=== PATIENT | male | born 1995 | race Caucasian/White ===

== ENCOUNTER 2019-01-06 07:36 | Emergency (ER) | payer BC, OTHER ==
[2019-01-06 07:42] VITALS: BP 138/89; PULSE 98; RESP 16; TEMP 98
--- NOTE | 2019-01-06 08:16 | ED ---
Overdose HPI - General Chief Complaint: Overdose Stated Complaint: Overdose Time Seen by Provider: 01/06/19 07:48 Source: EMS, RN notes reviewed, old records reviewed Mode of arrival: EMS Limitations: no limitations - History of Present Illness Initial Comments: Patient is 23-year-old male who presents emergency department today for evaluation for her taking LSD aproximally 5 hours ago and for Feeling abnormal. Patient states he has taken LSD in the past. He denies any other drug use at this time. Patient states that he is concerned he may have groin abscesses, abdominal abscess, adn internal bleeding. Patient also states she is concerned for constipation. Patient is erratic. - Related Data Home Medications Medication Instructions Recorded Confirmed Dextroamphetamine/Amphetamine 20 mg PO TID 01/06/19 01/06/19 [Adderall] Docusate [Colace] 100 mg PO BID PRN 01/06/19 01/06/19 Allergies Allergy/AdvReac Type Severity Reaction Status Date / Time No Known Allergies Allergy Verified 01/06/19 08:00 Review of Systems ROS Statement: Those systems with pertinent positive or pertinent negative responses have been documented in the HPI. ROS Other: All systems not noted in ROS Statement are negative. Past Medical History Past Medical History: No Reported History History of Any Multi-Drug Resistant Organisms: None Reported Past Surgical History: No Surgical Hx Reported Past Psychological History: No Psychological Hx Reported Smoking Status: Current every day smoker Past Alcohol Use History: None Reported Past Drug Use History: Marijuana General Exam - General Exam Comments Initial Comments: Erratic 23 year old male, anxiious. Appears under influence of drugs. Limitations: no limitations General appearance: alert, in no apparent distress Head exam: Present: atraumatic, normocephalic, normal inspection Eye exam: Present: normal appearance, PERRL, EOMI. Absent: scleral icterus, conjunctival injection, periorbital swelling ENT exam: Present: normal exam, mucous membranes moist Neck exam: Present: normal inspection. Absent: tenderness, meningismus, lymphadenopathy Respiratory exam: Present: normal lung sounds bilaterally. Absent: respiratory distress, wheezes, rales, rhonchi, stridor Cardiovascular Exam: Present: regular rate, normal rhythm, normal heart sounds. Absent: systolic murmur, diastolic murmur, rubs, gallop, clicks GI/Abdominal exam: Present: soft, normal bowel sounds. Absent: distended, tenderness, guarding, rebound, rigid Extremities exam: Present: normal inspection, full ROM, normal capillary refill. Absent: tenderness, pedal edema, joint swelling, calf tenderness Back exam: Present: normal inspection Neurological exam: Present: altered (Confused, pressued erratic converstations, and seems under influence. ) Course Vital Signs 01/06/19 07:39 Temperature 98.0 F Pulse Rate 98 Respiratory 16 Rate Blood Pressure 138/89 O2 Sat by Pulse 98 Oximetry Medical Decision Making - Medical Decision Making 23 year old male presents with EMS, found on street after taking LSD. Multiple strange complaints with concern for constipation, abdominal abscess, and bleeding from injection sites of drugs. UDS is positive for methamphetamine. Patient at this time has normal vitals, and is under influence and is erratic. Patient is held in ED, is able to have ride and someone to take him home. Patient advised symptoms and paranoia and erratic behaviour are from drugs. Disucssed appropriate folow up and counseling services. - Lab Data Lab Results 01/06/19 Range/Units 08:42 Urine Opiates Screen Not Detected (NotDetected) Ur Oxycodone Screen Not Detected (NotDetected) Urine Methadone Screen Not Detected (NotDetected) Ur Propoxyphene Screen Not Detected (NotDetected) Ur Barbiturates Screen Not Detected (NotDetected) U Tricyclic Antidepress Not Detected (NotDetected) Ur Phencyclidine Scrn Not Detected (NotDetected) Ur Amphetamines Screen Detected H (NotDetected) U Methamphetamines Scrn Detected H (NotDetected) U Benzodiazepines Scrn Not Detected (NotDetected) Urine Cocaine Screen Not Detected (NotDetected) U Marijuana (THC) Screen Not Detected (NotDetected) - Radiology Data Radiology results: report reviewed KUB is normal. Disposition Clinical Impression: Methamphetamine abuse Disposition: HOME SELF-CARE Condition: Good Instructions (If sedation given, give patient instructions): Methamphetamine Abuse (ED) Additional Instructions: Stop abusing drugs. Patient should follow-up with primary care physicians, return to the emergency department if any alarming signs or symptoms occur. Jolon: [phone] [place] [address] Appointment is Necessary Call @6AM Tuesday, Tuesday, Tuesday & 8am-11am Only take patients with no insurance or Medicaid. ---Do not accept patient with Blue Cross, Medicare, or Commerical Insurance Is patient prescribed a controlled substance at d/c from ED?: No Referrals: None,Stated [Primary Care Provider] - 1-2 days Time of Disposition: 11:10
--- NOTE | 2019-01-06 08:28 | XR ---
EXAMINATION TYPE: XR KUB DATE OF EXAM: 01/06/2019 COMPARISON: None INDICATION: Overdose, not feeling well TECHNIQUE: Single view abdomen FINDINGS: There is a normal bowel gas pattern. Psoas margins are normal. No organomegaly is present. IMPRESSION: 1. Unremarkable Abdomen
[2019-01-06 09:28] LABS: Cocaine Screen,Urine Not Detected (NotDetected); Opiate Screen,Urine Not Detected (NotDetected); Phencyclidine Screen,Urine Not Detected (NotDetected); Urn Cannabinoid Scrn Not Detected (NotDetected)
[2019-01-06 09:29] LABS: Amphetamine Screen,Urine Detected (NotDetected); Barbiturate Screen,Urine Not Detected (NotDetected); Benzodiazepines Screen,Urine Not Detected (NotDetected); Methadone Screen, Urine Not Detected (NotDetected); Oxycodone Screen, Urine Not Detected (NotDetected); Tricyclic Antidepressant,Urine Not Detected (NotDetected)
[2019-01-06] MEDS ORDERED: LORazepam 1 MG TAB PO STA (10:04)
== END 2019-01-06 12:00 | disposition home or self-care (01) ==
LOC: EC 07:36
DX: F15.10 Other stimulant abuse, uncomplicated (principal); F17.200 Nicotine dependence, unspecified, uncomplicated; Z79.899 Other long term (current) drug therapy
CPT/HCPCS: 74018; 80306; 99284

== ENCOUNTER 2019-01-16 07:39 | Emergency (ER) | payer BC, OTHER ==
[2019-01-16 07:42] VITALS: TEMP 98
--- NOTE | 2019-01-16 08:00 | ED ---
Abdominal Pain HPI - General Chief Complaint: Abdominal Pain Stated Complaint: abd pain, constipation Time Seen by Provider: 01/16/19 07:43 Source: patient Mode of arrival: ambulatory Limitations: no limitations - History of Present Illness Initial Comments: 23-year-old male presenting today for chief complaint of loose mucousy stools. Patient states that he usually struggles with constipation. He states that he has to use stimulant laxatives in order to have vomitus. Patient states that he has been using these and his last bowel movement was 30 hours ago. Patient states that he noticed that it was mucousy he was concerned that this was a parasite, he states this caused him to become anxious about it. Patient states that sometimes after eating this left-sided abdominal pain denies any current abdominal pain. Patient denies any bloody or dark stools. Patient denies any fevers, vomiting. Patient denies any recent travel or drinking from streams. Remaining review of system negative. Upon arrival pateint appears well there is no signs of acute distress. Afebrile, appearing well. - Related Data Home Medications Medication Instructions Recorded Confirmed Dextroamphetamine/Amphetamine 20 mg PO TID 01/06/19 01/06/19 [Adderall] Docusate [Colace] 100 mg PO BID PRN 01/06/19 01/06/19 Allergies Allergy/AdvReac Type Severity Reaction Status Date / Time No Known Allergies Allergy Verified 01/16/19 07:42 Review of Systems ROS Statement: Those systems with pertinent positive or pertinent negative responses have been documented in the HPI. ROS Other: All systems not noted in ROS Statement are negative. Past Medical History Past Medical History: No Reported History Additional Past Medical History / Comment(s): chronic constipation History of Any Multi-Drug Resistant Organisms: None Reported Past Surgical History: Tonsillectomy Additional Past Surgical History / Comment(s): skin graft, wisdom teeth Past Psychological History: No Psychological Hx Reported Smoking Status: Current every day smoker Past Alcohol Use History: Occasional Past Drug Use History: Marijuana General Exam - General Exam Comments Initial Comments: General: The patient is awake and alert, in no distress, and does not appear acutely ill. Eye: +3 mm pupils are equal, round and reactive to light, extra-ocular movements are intact. No nystagmus. There is normal conjunctiva bilaterally. No signs of icterus. Ears, nose, mouth and throat: There are moist mucous membranes and no oral lesions. Cardiovascular: There is a regular rate and rhythm. No murmur, rub or gallop is appreciated. Respiratory: Lungs are clear to auscultation, respirations are non-labored, breath sounds are equal. No wheezes, stridor, rales, or rhonchi. Gastrointestinal: Soft, non-distended, non-tender abdomen without masses or organomegaly noted. There is no rebound or guarding present.Bowel sounds are unremarkable. Musculoskeletal: Normal ROM, no tenderness. Strength 5/5. Sensation intact. Radial pulses equal bilaterally 2+. Neurological: A&O x 3. CN II-XII intact grossly, There are no obvious motor or sensory deficits. Coordination appears grossly intact. Speech is normal. Skin: Skin is warm and dry and no rashes or lesions are noted. Psychiatric: Cooperative, appropriate mood & affect, normal judgment. Limitations: no limitations Course Vital Signs 01/16/19 01/16/19 07:40 08:54 Temperature 98.0 F 98.0 F Pulse Rate 90 76 Respiratory 18 76 H Rate Blood Pressure 139/88 135/76 O2 Sat by Pulse 99 99 Oximetry Medical Decision Making - Medical Decision Making 23-year-old male presenting for mucus in stools. Patient has abdominal pain on examination. Denies current abdominal pain he states he does have occasional left-sided abdominal pain with eating. Patient's laboratory studies unremarkable. No leukocytosis. Patient states he just external laxness for chronic constipation. KUB shows a nonobstructive pattern. No pneumoperitoneum. There are findings consistent with a possible enteritis or ileus. Unable to pr ovide stool sample. This time I recommend patient to provide stool sample L patient's primary care provider otherwise patient denies any melena hematochezia he appears well. I do not suspicious for acute abdomen at this time feel patient is stable for discharge with outpatient primary care follow-up. Patient was agreeable to this care plan discharge. Records relate released patient's primary care provider. - Lab Data Result diagrams: 01/16/19 07:55 01/16/19 07:55 Lab Results 01/16/19 01/16/19 01/16/19 Range/Units 07:55 07:55 07:56 WBC 5.2 (3.8-10.6) k/uL RBC 4.70 (4.30-5.90) m/uL Hgb 14.7 (13.0-17.5) gm/dL Hct 43.2 (39.0-53.0) % MCV 91.9 (80.0-100.0) fL MCH 31.2 (25.0-35.0) pg MCHC 34.0 (31.0-37.0) g/dL RDW 13.4 (11.5-15.5) % Plt Count 311 (150-450) k/uL Neutrophils % 54 % Lymphocytes % 36 % Monocytes % 6 % Eosinophils % 1 % Basophils % 0 % Neutrophils # 2.8 (1.3-7.7) k/uL Lymphocytes # 1.9 (1.0-4.8) k/uL Monocytes # 0.3 (0-1.0) k/uL Eosinophils # 0.1 (0-0.7) k/uL Basophils # 0.0 (0-0.2) k/uL Sodium 140 (137-145) mmol/L Potassium 4.2 (3.5-5.1) mmol/L Chloride 102 (98-107) mmol/L Carbon Dioxide 29 (22-30) mmol/L Anion Gap 9 mmol/L BUN 14 (9-20) mg/dL Creatinine 1.17 (0.66-1.25) mg/dL Est GFR (CKD-EPI)AfAm >90 (>60 ml/min/1.73 sqM) Est GFR (CKD-EPI)NonAf 87 (>60 ml/min/1.73 sqM) Glucose 80 (74-99) mg/dL Calcium 9.7 (8.4-10.2) mg/dL Total Bilirubin 0.4 (0.2-1.3) mg/dL AST 20 (17-59) U/L ALT 23 (21-72) U/L Alkaline Phosphatase 55 (38-126) U/L Total Protein 7.3 (6.3-8.2) g/dL Albumin 4.6 (3.5-5.0) g/dL Amylase 54 (30-110) U/L Lipase 63 (23-300) U/L Urine Color Yellow Urine Appearance Clear (Clear) Urine pH 6.0 (5.0-8.0) Ur Specific [place] 1.014 (1.001-1.035) Urine Protein Negative (Negative) Urine Glucose (UA) Negative (Negative) Urine Ketones Negative (Negative) Urine Blood Negative (Negative) Urine Nitrite Negative (Negative) Urine Bilirubin Negative (Negative) Urine Urobilinogen <2.0 (<2.0) mg/dL Ur Leukocyte Esterase Negative (Negative) Disposition Clinical Impression: Mucous in stools Disposition: HOME SELF-CARE Condition: Good Instructions (If sedation given, give patient instructions): Irritable Bowel Syndrome (ED), Constipation (ED) Additional Instructions: Please use medication as discussed. Please follow-up with family doctor in the next 2 days, recommend providing stool sample. Please return to emergency room if the symptoms increase or worsen or for any other concerns. Is patient prescribed a controlled substance at d/c from ED?: No Referrals: Andrea Leavitt MD [Primary Care Provider] - 1-2 days Time of Disposition: 08:44
[2019-01-16 08:13] LABS: Appearance,Urine Clear (Clear); Bilirubin,Urine Negative (Negative); Blood,Urine Negative (Negative); Color,Urine Yellow; Glucose,Urine (UA) Negative (Negative); Ketones,Urine Negative (Negative); Leukocyte Esterase,Urine Negative (Negative); Nitrite,Urine Negative (Negative); Protein,Urine Negative (Negative); Specific Gravity,Urine 1.014 (1.001-1.035); Urobilinogen,Urine <2.0 mg/dL (<2.0)
[2019-01-16 08:25] LABS: ALT 23 U/L (21-72); AST 20 U/L (17-59); African American GFR (CKD) >90 (>60 ml/min/1.73 sqM); Albumin 4.6 g/dL (3.5-5.0); Alkaline Phosphatase 55 U/L (38-126); Amylase 54 U/L (30-110); Anion Gap 9 mmol/L; Blood Urea Nitrogen 14 mg/dL (9-20); Calcium 9.7 mg/dL (8.4-10.2); Carbon Dioxide 29 mmol/L (22-30); Chloride 102 mmol/L (98-107); Glucose 80 mg/dL (74-99); Potassium 4.2 mmol/L (3.5-5.1); Sodium 140 mmol/L (137-145); Total Bilirubin 0.4 mg/dL (0.2-1.3); Total Protein 7.3 g/dL (6.3-8.2)
--- NOTE | 2019-01-16 08:27 | XR ---
EXAMINATION TYPE: XR KUB DATE OF EXAM: 01/16/2019 CLINICAL DATA: 23-year-old male with abdominal pain, H COMPARISON: 01/06/2019 FINDINGS: Lung bases are clear. No evidence for free intraperitoneal air. There is a single air distended bowel loop left mid to lower abdomen measuring up to 4.0 cm. Moderate stool in the right side of the colon. No air-fluid levels. No suspicious calcifications identified. IMPRESSION: 1. No evidence for free air. Overall nonobstructive bowel gas pattern. 2. Solitary, mildly dilated loop of bowel left mid to lower abdomen could be transient or could repre sent a regional ileus or enteritis.
[2019-01-16 08:31] LABS: Basophils % (A) 0 %; Eosinophils # (A) 0.1 k/uL (0-0.7); Eosinophils % (A) 1 %; HCT 43.2 % (39.0-53.0); HGB 14.7 gm/dL (13.0-17.5); Lymphocytes # (A) 1.9 k/uL (1.0-4.8); Lymphocytes % (A) 36 %; MCH 31.2 pg (25.0-35.0); MCV 91.9 fL (80.0-100.0); Mean Platelet Volume 7.1; Monocytes # (A) 0.3 k/uL (0-1.0); Monocytes % (A) 6 %; Neutrophils # (A) 2.8 k/uL (1.3-7.7); Neutrophils % (A) 54 %; Platelet Count 311 k/uL (150-450); RDW 13.4 % (11.5-15.5); WBC 5.2 k/uL (3.8-10.6)
[2019-01-16 08:56] VITALS: BP 135/76; PULSE 76; RESP 76
== END 2019-01-16 08:54 | disposition home or self-care (01) ==
LOC: EC 07:39
DX: R19.5 Other fecal abnormalities (principal); K59.09 Other constipation; F17.200 Nicotine dependence, unspecified, uncomplicated; Z79.899 Other long term (current) drug therapy
CPT/HCPCS: 36415; 74018; 80053; 81003; 82150; 83690; 85025; 99284